=== PATIENT | male | born 1960 | race Two or more races ===

== ENCOUNTER → 2023-01-26 | Day surgery (SDC) | payer OTHER ==
[2023-01-22 14:10] LABS: Basophils # (auto) 0 10 ^3/uL (0-0.2); Basophils % (auto) 0.6 % (0.0-2.0); Eosinophils # (auto) 0.2 10 ^3/uL (0-0.8); Eosinophils % (auto) 3.4 % (0.0-7.0); Hematocrit 42.1 % (41.0-53.0); Hemoglobin 14.4 g/dL (13.5-17.5); Lymphocytes # (auto) 1.8 10 ^3/uL (0.4-5.4); Mean Corpuscular Hemoglobin 31.3 pg (28.0-32.0); Mean Corpuscular Hgb Conc. 34.1 g/dL (32.0-36.0); Mean Corpuscular Volume 91.9 fL (80.0-100.0); Monocytes # (auto) 0.5 10 ^3/uL (0-1.3); Monocytes % (auto) 7.4 % (0.0-12.0); Neutrophils # (auto) 4.5 10 ^3/uL (1.6-8.6); Neutrophils % (auto) 63.6 % (37.0-80.0); Nucleated Red Blood Cells % 0.1 %; Red Blood Cells 4.58 10^6/uL (4.5-5.90); Red Cell Distribution Width 13.8 % (11.8-14.3); White Blood Cell 7.1 10^3/uL (4.4-10.8)
[2023-01-22 14:35] LABS: INR 0.96 (0.9-1.15); Partial Thromboplastin Time 25.9 sec (24.6-33.4)
[2023-01-22 14:53] LABS: Calcium 8.7 mg/dL (8.5-10.1)
[2023-01-22 14:57] LABS: BUN/Creatinine Ratio 19.8 (10.0-20.0); Bilirubin, Total 0.2 mg/dL (0.2-1.0)
[~2023-01-26] VITALS: Ht 177.8 cm; Wt 88.5 kg
[~2023-01-26] MED LIST: ASPI1TAB20 PO; LIDOCAINE 2% (LOCAL ANESTH.) PF 5ml SDV ONE; LISI20TA56 PO; MIDAZOLAM HCL 5 MG/ML-1ML VIAL ONE; PROPOFOL 10 MG/ML 20 ML IV ONE; SODIUM CHLORIDE LOCK 0 ML ONE; diphenhdrAMINE HCL 50 MG/1 ML VL ONE; fentaNYL CITRATE 100 MCG/2 ML VL ONE
[2023-01-26 12:47] VITALS: BP 103/77
== END | disposition home or self-care (01) ==
LOC: GI 10:13
PROVIDERS: ATTEND Internal Medicine Gastroenterology
DX: R19.5 Other fecal abnormalities (principal); K64.8 Other hemorrhoids; K63.5 Polyp of colon; I10 Essential (primary) hypertension; Z79.899 Other long term (current) drug therapy
CPT/HCPCS: 36415; 45380; 45385; 80053; 85025; 85610; 85730; J2001; J2704; J7030; J2250